=== PATIENT | male | born 1995 | race Two or more races ===

== ENCOUNTER 2022-04-24 02:41 | Emergency (ER) | payer OTHER ==
[~2022-04-24] VITALS: Ht 182.9 cm; Wt 150.0 kg
[2022-04-24] MEDS ORDERED: TETANUS-DIPTH-ACEL PERTUSSIS 0.5ML SYR Tdap IM ONE (03:15)
[2022-04-24 03:19] VITALS: BP 172/97
[2022-04-24] MEDS ORDERED: LIDOCAINE W/ EPINEPHRINE 2% INJ 20ML VIAL IJ ONE (05:15)
[2022-04-24] MEDS ORDERED: BACI1OIN45 EX (07:32)
== END 2022-04-24 08:00 | disposition home or self-care (01) ==
LOC: ER 02:41 → EDBD 02:41 → ER 08:00
DX: S01.01XA Laceration without foreign body of scalp, initial encounter (principal); S01.81XA Laceration without foreign body of other part of head, initial encounter; V43.52XA Car driver injured in collision with other type car in traffic accident, initial encounter; Y93.89 Activity, other specified; Y92.410 Unspecified street and highway as the place of occurrence of the external cause; Y99.8 Other external cause status
CPT/HCPCS: 12002; 12011; 70450; 72125; 90471; 90715

== ENCOUNTER 2022-05-04 11:22 | Emergency (ER) | payer OTHER ==
[~2022-05-04] VITALS: Ht 182.9 cm; Wt 136.0 kg
[~2022-05-04 11:22] MED LIST: BACI1OIN45 EX
[2022-05-04 13:18] VITALS: BP 153/92
== END 2022-05-04 13:13 | disposition home or self-care (01) ==
LOC: ER 11:22
DX: S01.01XD Laceration without foreign body of scalp, subsequent encounter (principal); S01.81XD Laceration without foreign body of other part of head, subsequent encounter; Z79.899 Other long term (current) drug therapy; V89.2XXD Person injured in unspecified motor-vehicle accident, traffic, subsequent encounter